=== PATIENT | male | born 1985 | race Caucasian/White ===

== ENCOUNTER → 2024-10-19 15:04 | Outpatient (CLI) | payer OTHER, SELFPAY ==
[2024-10-19 17:05] LABS: Add Manual Diff / Slide Review NO; Hematocrit 42.9 % (41-53); Hemoglobin 15.1 g/dL (13.5-17.5); Lymphocytes Absolute Auto 2000 /uL (1100-4500); Mean Corpuscular HGB Conc 35.2 % (30-36); Mean Corpuscular Hemoglobin 31.5 PG (26-34); Mean Corpuscular Volume 89.6 fL (80-100); Platelet Count 261 X10^3/uL (150-400)
[2024-10-19 17:25] LABS: Hemoglobin A1C% w Est Avg Glu 4.6 % (4.0-6.0)
[2024-10-19 18:06] LABS: Alanine Aminotransferase 19 IU/L (<50); Albumin 4.7 g/dL (3.5-5.0); Albumin Globulin Ratio 1.7 (1.0-2.8); Alkaline Phosphatase 52 U/L (38-126); Blood Urea Nitrogen 14 mg/dL (9-20); Calcium 9.3 mg/dL (8.4-10.2); Carbon Dioxide 21 mmol/L (22-32); Chloride 103 mmol/L (98-107); Cholesterol 186 mg/dL (140-199); Estimated Glomerular Filt Rate > 60 mL/min (>60); Globulin 2.7 g/dL (1.7-4.1); Glucose 82 mg/dL (70-99); HDL Cholesterol 50 mg/dL (40-60); HEMOLYSIS < 15 (0-50); Potassium 3.8 mmol/L (3.4-5.1); Sodium 135 mmol/L (137-145); Total Protein 7.4 g/dL (6.3-8.2); Triglycerides 70 mg/dL (35-150)
[2024-10-19 18:07] LABS: HEMOLYSIS < 15 (0-50); Iron 171 ug/dL (49-181)
[2024-10-19 18:20] LABS: Percent Iron Saturation 54 % (20-50); Total Iron Binding Capacity 314 ug/dL (261-462); Transferrin 244 mg/dL (206-381)
[2024-10-19 18:21] LABS: Vitamin D 25 Hydroxy (D3) 43.2 ng/mL (30.0-100.0)
[2024-10-19 18:38] LABS: Ferritin 54 ng/mL (18-464)
[2024-10-19 18:52] LABS: Vitamin B12 861 pg/mL (239-931)
[2024-10-20 00:44] LABS: Hep C Virus Ab w/Reflex Quant NEGATIVE s/c (NEGATIVE)
== END ==
PROVIDERS: PCP Family Medicine; Referring Provider Family Medicine; Visit Provider Family Medicine
DX: E61.8 Deficiency of other specified nutrient elements (principal); Z13.9 Encounter for screening, unspecified; R53.83 Other fatigue; Z13.1 Encounter for screening for diabetes mellitus; E66.3 Overweight; Z11.59 Encounter for screening for other viral diseases; Z13.21 Encounter for screening for nutritional disorder; Z13.220 Encounter for screening for lipoid disorders; E87.8 Other disorders of electrolyte and fluid balance, not elsewhere classified
CPT/HCPCS: 36415; 80053; 80061; 82306; 82607; 82728; 83036; 83540; 83550; 85025; 86803

== ENCOUNTER → 2024-12-30 14:28 | Outpatient (CLI) | payer OTHER, SELFPAY ==
--- NOTE | 2024-12-30 14:30 | DI.RAD.S_ITS ---
PROCEDURE: XR LUMBAR SPINE 2-3V INDICATIONS: Lumbar pain TECHNIQUE: 3 views of the lumbar spine were acquired. COMPARISON: None. FINDINGS: Bones: 5 [id number] vertebrae are present. There is normal bony alignment. No vertebral body compression fractures. No suspicious bony lesions. Mild disc height loss of L4-5 and L5-S1. Mild facet arthrosis at these levels. Soft tissues: Overlying bowel gas pattern is normal. No suspicious soft tissue calcifications. IMPRESSION: Mild lower lumbar degenerative disc disease and facet arthrosis. Dictated by: Jayson Solitario M.D. on 12/30/2024 at 15:09 Approved by: Jayson Solitario M.D. on 12/30/2024 at 15:09
== END ==
PROVIDERS: PCP Family Medicine; Referring Provider Family Medicine; Visit Provider Nurse Practitioner Family
DX: M51.360 Other intervertebral disc degeneration, lumbar region with discogenic back pain only (principal); M51.370 Other intervertebral disc degeneration, lumbosacral region with discogenic back pain only; M47.816 Spondylosis without myelopathy or radiculopathy, lumbar region; M47.817 Spondylosis without myelopathy or radiculopathy, lumbosacral region
CPT/HCPCS: 72100